=== PATIENT | female | born 1940 | race Caucasian/White ===

== ENCOUNTER 2022-04-25 14:26 | Outpatient (CLI) | payer OTHER | END 2022-04-25 14:40 | disposition home or self-care (01) | LOC: TOM 14:26 | PROVIDERS: ATTEND Psychiatry & Neurology Clinical Neurophysiology | DX: S06.30AA Unspecified focal traumatic brain injury with loss of consciousness status unknown, initial encounter (principal); S06.2X9A Diffuse traumatic brain injury with loss of consciousness of unspecified duration, initial encounter ==

== ENCOUNTER 2023-06-24 11:06 | Emergency (ER) | payer OTHER ==
[~2023-06-24] VITALS: Ht 160 cm; Wt 57.2 kg
[2023-06-24] MEDS ORDERED: PEPCID20 MG PO (11:35)
[2023-06-24] MEDS ORDERED: TOPROL XL200 MG PO (11:35)
[2023-06-24] MEDS ORDERED: ELIQUIS2.5 MG PO (11:35)
[2023-06-24] MEDS ORDERED: NAMENDA5 MG PO (11:35)
[2023-06-24] MEDS ORDERED: PRAVASTATIN SOD40 MG PO (11:36)
[2023-06-24] MEDS ORDERED: CARDURA1 MG PO (11:36)
[2023-06-24] MEDS ORDERED: REPAGLINIDE1 MG (11:37)
[2023-06-24 12:17] LABS: HEMATOCRIT 39.8 % (36.0-45.00); HEMOGLOBIN 13.2 g/dL (12.0-15.00); MEAN CELL VOLUME 85.8 fL (80.00-100.00); MEAN CORPUSCULAR HEMOGLOBIN 28.5 pg (27.00-32.0); MEAN CORPUSCULAR HGB CONC 33.2 g/dl (32.0-36.0); RED BLOOD COUNT 4.63 M/uL (4.00-6.00); RED CELL DISTRIBUTION WIDTH 14.1 % (11.5-14.5)
[2023-06-24 12:38] LABS: ALBUMIN 3.5 gm/dL (3.4-5.0); BILIRUBIN TOTAL 0.93 mg/dL (0.3-1.2); CREATININE SERUM 0.94 mg/dL (0.55-1.02); GFR 56.87; GLOBULINA 3.7 G/DL (2.4-3.5); POTASSIUM 3.61 mEq/L (3.5-5.1); TOTAL PROTEIN 7.2 gm/dL (6.4-8.2)
[2023-06-24 12:40] LABS: PLATELET COUNT 128 K/uL (150-450)
== END 2023-06-24 13:47 | disposition home or self-care (01) ==
LOC: ER 11:06
PROVIDERS: General Practice
DX: S09.8XXA Other specified injuries of head, initial encounter (principal); W19.XXXA Unspecified fall, initial encounter; Y93.89 Activity, other specified; Y92.098 Other place in other non-institutional residence as the place of occurrence of the external cause; Y99.8 Other external cause status; I10 Essential (primary) hypertension; E11.9 Type 2 diabetes mellitus without complications; Z88.8 Allergy status to other drugs, medicaments and biological substances

== ENCOUNTER 2023-11-28 14:36 | Emergency (ER) | payer OTHER ==
[~2023-11-28] VITALS: Ht 167.6 cm; Wt 63.5 kg
[~2023-11-28 14:36] MED LIST: CARDURA1 MG PO; ELIQUIS2.5 MG PO; NAMENDA5 MG PO; PEPCID20 MG PO; PRAVASTATIN SOD40 MG PO; REPAGLINIDE1 MG; TOPROL XL200 MG PO
[2023-11-28] MEDS ORDERED: KETOROLAC TROMETHAMINE 30 MG VIAL IV ONE (16:30)
[2023-11-28] MEDS ORDERED: KETOROLAC TROMETHAMINE 30 MG VIAL ONE (16:33)
== END 2023-11-28 21:25 | disposition home or self-care (01) ==
LOC: ER 14:36
DX: M54.50 Low back pain, unspecified (principal); I10 Essential (primary) hypertension; E11.9 Type 2 diabetes mellitus without complications; Z88.8 Allergy status to other drugs, medicaments and biological substances
CPT/HCPCS: 72131; 96365; 99284; J1885

== ENCOUNTER 2023-12-05 09:20 | Emergency (ER) | payer OTHER ==
[~2023-12-05] VITALS: Ht 157.5 cm; Wt 57.2 kg
== END 2023-12-05 14:08 | disposition home or self-care (01) ==
LOC: ER 09:20
DX: S09.8XXA Other specified injuries of head, initial encounter (principal); W19.XXXA Unspecified fall, initial encounter; Y93.89 Activity, other specified; Y92.098 Other place in other non-institutional residence as the place of occurrence of the external cause; Y99.8 Other external cause status; I48.91 Unspecified atrial fibrillation; I10 Essential (primary) hypertension; Z88.8 Allergy status to other drugs, medicaments and biological substances; Z88.9 Allergy status to unspecified drugs, medicaments and biological substances

== ENCOUNTER 2024-05-30 08:44 | Outpatient (CLI) | payer OTHER | END 2024-05-30 08:50 | disposition home or self-care (01) | LOC: TOM 08:44 | DX: R10.2 Pelvic and perineal pain (principal); R10.9 Unspecified abdominal pain | CPT/HCPCS: 74178; Q9965 ==

== ENCOUNTER 2024-08-22 13:06 | Outpatient (CLI) | payer OTHER | END 2024-08-22 13:18 | disposition home or self-care (01) | LOC: TOM 13:06 | PROVIDERS: ATTEND General Practice | DX: R04.2 Hemoptysis (principal) ==

== ENCOUNTER → 2024-11-22 | Outpatient (CLI) | payer OTHER | END | disposition home or self-care (01) | LOC: RAD 10:38 | PROVIDERS: ATTEND Specialist | DX: R05.9 Cough, unspecified (principal) ==